=== PATIENT | male | born 1975 | race African-American/Black ===

== ENCOUNTER 2016-11-02 17:45 | Emergency (ER) | payer SELFPAY ==
[~2016-11-02] VITALS: Ht 180.3 cm; Wt 68.0 kg
[~2016-11-02 17:45] MED LIST: ALBUTEROL0.09 MG/A2 INH; ZITHROMAX Z-PA250 M1 PO
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
[2016-11-02] MEDS ORDERED: ASPIRIN EC325 M2 PO (19:41)
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
--- NOTE | 2016-11-02 21:25 | ULTRASOUND REPORT ---
EXAMINATION: US TRIPLEX LOWER EXTREMITY, LEFT CLINICAL INFORMATION: Left leg pain. Rule out DVT COMPARISON: None. TECHNIQUE: Color-flow triplex imaging with spectral analysis and compression Doppler were performed on the left lower extremity. FINDINGS: Respiratory variation, normal compression and augmented flow are noted throughout the lower extremity. The visualized common femoral vein, superficial femoral vein, profunda femoral vein, popliteal vein and mid calf peroneal and posterior tibial venous segments show no evidence of deep venous thrombosis. There is no Frost's cyst. IMPRESSION: Normal triplex scan without evidence of deep venous thrombosis involving the left lower extremity.
[2016-11-02 21:41] VITALS: BP 148/88
[2016-11-02] MEDS ORDERED: PERCOCET 5-3251 EACH PO (21:42)
[2016-11-02] MEDS ORDERED: CYCLOBENZAPRINE10 M1 PO (21:42)
== END 2016-11-02 22:06 ==
LOC: ERH 17:45
DX: S20.211A Contusion of right front wall of thorax, initial encounter (principal); M79.89 Other specified soft tissue disorders; V49.40XA Driver injured in collision with unspecified motor vehicles in traffic accident, initial encounter
CPT/HCPCS: 71100-RT; 72170